=== PATIENT | male | born 1955 | race Caucasian/White ===

== ENCOUNTER 2018-07-07 10:35 | Outpatient (CLI) | payer BC, MEDICARE ==
[2018-07-07 14:21] LABS: HEMOGLOBIN A1C 0.69 g/dL; HEMOGLOBIN A1C % 6.1 % (4.6-6.2)
== END 2018-07-07 23:59 | disposition home or self-care (01) ==
LOC: LAB.R 10:35
PROVIDERS: ATTEND Internal Medicine
DX: R73.9 Hyperglycemia, unspecified (principal)
CPT/HCPCS: 83036

== ENCOUNTER 2021-05-15 08:00 | Outpatient (CLI) | payer MEDICARE ==
--- NOTE | 2021-05-15 13:20 | XRAY Report ---
PROCEDURE: Humerus LT INDICATIONS: INJURY TO LEFT SHOULDER AND ARM TECHNIQUE: 2 views of the humerus were acquired. COMPARISON: None FINDINGS: Bones: Generalized decreased osseous mineralization present. Transverse fracture of the proximal ariel anya with impaction noted. Articular surfaces humeral head appears intact. No dislocation. Soft tissues: No suspicious soft tissue calcifications. IMPRESSION: Impacted comminuted proximal humeral fracture Reviewed by: Brent Vick MD on 05/15/2021 12:19 PM [place] Approved by: Brent Vick MD on 05/15/2021 12:19 PM [place] Station ID: [id number]
== END 2021-05-15 23:59 | disposition home or self-care (01) ==
LOC: DI.S 08:00
PROVIDERS: ATTEND Emergency Medicine
DX: S42.202A Unspecified fracture of upper end of left humerus, initial encounter for closed fracture (principal)